=== PATIENT | female | born 1980 | race Caucasian/White ===

== ENCOUNTER 2023-07-06 07:07 | Day surgery (SDC) | payer OTHER, SELFPAY ==
[2023-07-06] VITALS (12 sets, daily range): BP systolic 104–120; BP diastolic 64–82; PULSE 46–68; RESP 12–18; TEMP 36.1–36.9; O2SAT 98–100; BMI 21.3
[2023-07-06] MEDS: LACTATED RINGERS 1000 ML 1,000 ML 100 ML IV (07:05)
--- OUTSIDE RECORDS SUMMARY | 2023-07-06 07:10 | XMS_ITS | Clinical Summary ---
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 This is their first child together Pt planning to deliver at [facility], may do some of her visits at [facility] Declines FS/SS/QS HSIL pap, needs colposcopy_04/12 , repeat colposcopy in late second trimester to monitor progression; she consulted with Rk Zamora in the [facility] and he recommended normal colposcopy during Rubella non-immune Periods somewhat irregular. VENTURA based on LMP was 10/09/13 VENTURA based on 7 wk ultrasound is 10/19/2013 and that is what we are going with due to irregular periods. Headaches started at 13 weeks and resolved around 30 weeks with caregiver services home. 1. 1997 35 weeks 3 hour labor, 2 pushes, 6 pounds Tylur 2. 2002 36 weeks 24 hour labor, 2 pushes, 7 pounds Yeny 3. 2003 37 weeks 12 hour labor, 2 pushes 6.5 pounds Casey Resolved Problems Problem Noted Date Diagnosed Date Resolved Date Possible , not yet confirmed 02/12/2013 03/23/2013 Encounters Date Type Department Care Team Description 07/03/[address] [address] Bonnie Tovar MD Surgery DATE DOS 07/0506/27/2023 Telephone [facility] [address] [place] [address] Bonnie Tovar MD Schedule Surgery 06/07/2023 4:15 PM CDT Office Visit [address] [address] Bonnie Tovar MD Consult (Umbilical hernia) 06/07/2023 Travel 06/02/2023 8:40 AM INSURANCE SALESMAN Office Visit [address] [address] Melissa Rutherford PA Concerns (Hernia in abdomen- 2014/Some pain and discomfort/Struggling to be able to eat, Causing digestive problems ) 06/02/2023 Travel from Last 3 Months Immunizations Name Administration Dates Next Due Hepatitis B (Adult) 11/01/2005,08/25/2005,2004 MMR 10/12/2013 Td, Preservative Free (age >= 7 Years) 7 Tuberculin (PPD) 02/04/2020 Family History Medical History Relation Name Comments Good Health Brother 3 1 brother and 1 1/2 brother, half brother with autism but high functioning Good Health Father Unknown Maternal Grandfather believe d to be in good health Diabetes Maternal Grandmother Good Health Mother Hypertension Other Cancer Paternal Grandfather lung ca ncer, bad lifestyle Other Paternal Grandmother issues from bad lifestyle Good Health Sister 3 1 sister, 1- 1/ 2 sister Relation Name Status Comments Brother 1 Alive Brother 2 Alive Brother 3 Daughter Alive Father Alive Maternal Grandfather Alive Maternal Grandmother Alive Mother Alive Other Paternal Grandfather Paternal Grandmother Alive Sister 1 Alive Sister 2 Alive Sister 3 Son 1 Alive Son 2 Alive Son 3 Alive Social History Tobacco Use Types Packs/Day Years Used Date Smoking Tobacco: Every Day Cigarettes 0.5 10.4 Started: 02/10/2013 Smokeless Tobacco: Never Tobacco Cessation:Ready to Q uit: Yes; Counseling Given: Yes Alcohol Use Standard Drinks/Week Comments Yes 2 (1 standard drink = 0.6 oz pure alcohol) Mostly on weekends - 2-3 beers on average PHQ-2 Answer Date Recorded PHQ-2 TOTAL SCORE 3 05/02/2022 Social Connections Answer Date Recorded Frequency of Communication with Friends and Fami ly Not on file 05/03/2023 Financial Resource Strain Answer Date R ecorded Difficulty of Paying Living Expenses 3 05/02/2022 Difficulty of Paying Living Expenses Not on file 05/02/2022 Food Insecurity Answer Date Recorded Worried About Running Out of Food in the Last Ye ar 1 05/02/2022 Transportation Needs Answer Date Record ed Lack of Transportation (Medical) 1 05/02/2022 Housing Stability Answer Date Recorded Unable to Pay for Housing in the Last Year 1 05/02/2022 Sex and Gender Information Value Date Recorded Sex Assigned at Not on file Gender Identity Not on file Sexual Orientation Not on file Obstetrics History Para Term AB IAB SAB Ectopic Multiple Livin g Live Births 5 4 3 1 1 0 0 1 0 4 4 Date Outcome GA Total Labor Labor/2nd/3rd Weight Sex Delivery Anes PTL Anat A1 A5 Name Cl in 09/05 35w 0d 3h 00m/ 2.72 kg (6 lb) M [facility] Delivery Location:[facility] Comments:PTL at 23 wks 1999 Ectopic Comments:treated with medication, no surgery 04/17 Term 37w 0d 24h 00m/ 3.18 kg (7 lb) F [facility] Delivery Location:[facility] Comments:no complicati ons 04/16 Term 38w 0d 12h 00m/ 2.95 kg (6 lb 8 oz) M [facility] Delivery Location:[facility] Comments:no complicati ons 10/11 Term 38w 0d 3.26 kg (7 lb 3 oz) M V[facility] Delivery Location:[facility] Last Filed Vital Signs Vital Sign Reading Time Taken Comments Blood Pressure 147/78 06/07/2023 4:14 PM CDT Pulse 78 06/07/2023 4:14 PM CDT Temperature 36.7 ??C (98 ??F) 05/02/2022 1:17 PM INSURANCE SALESMAN Respiratory Rate 18 04/28/2017 4:26 PM INSURANCE SALESMAN Oxygen Saturation 99% 06/07/2023 4:14 PM CDT Inhaled Oxygen Concentration - - Weight 60.2 kg (132 lb 12.8 oz) 06/07/2023 4:14 PM CDT Height 166.4 cm (5' 5.5) 10/06/2021 3:00 PM CDT Body Mass Index 21.76 10/06/2021 3:00 PM CDT Plan of Treatment Upcoming Encounters Date Type Department Care Team (Late st Contact Info) Description 07/06/2023 9:00 AM CDT Office Visit [facility] at [facility] [address] [place] [phone] Bonnie Tovar MD [address] [place] [address] Health Maintenance Due Date Last Done Comments Pneumococcal series for age 6-64 (1 of 2 - PCV) 07/28/1985 Tdap 07/28/1990 Tetanus booster 08/17/2016 08/17/2006 BMI (ht and wt on same day) for age 18+ 10/06/2022 10/06/2021, 03/09/2018, 03/03/2017, Additional history exists Pap test for age 21-65 10/06/2022 , 10/06/2021, 12/01/2017, Additional history exists COVID-19 vaccine series (2022-24 season) 2022 Depression screening for age 12+ 05/03/2023 05/03/2022, 05/03/2022, 05/02/2022, Additional history exists Influenza for age 9-49 11/26/2023 Hepatitis C screening for ag e 18-79 Completed 08/16/2006 HIV for age 15-65 Completed 03/22/2013, 08/16/2006 Procedures Procedure Name Priority Date/Time Associated Diagnosis Comments HPV THIN PREP Routine 10/06/2021 3:15 PM CDT Cervical cancer screening ANTI HIV 1/2 Routine 03/22/2013 2:16 PM INSURANCE SALESMAN Supervision of other normal ANTI HCV Routine 08/16/2006 3:17 PM CDT Laceration Of Finger from Last 3 Months or Most Recently Relevant to Health Maintenance Results * HPV HIGH RISK (10/06/2021 3:15 PM CDT) TYPE 16 Negative Negative 10/12/2021 11:21 AM CDT [facility] TYPE 18 Negative Negative 10/12/2021 11:21 AM CDT [facility] OTHER HIGH RISK TYPES Negative Negative 10/12/2021 11:21 AM CDT [facility] Other SPECIMEN FROM VAGINA / Unknown Non-Blood / Unknown 10/06/2021 3:15 PM CDT 10/07/2021 5:10 [facility] 10/12/2021 11:21 AM CDT HPV types 16, 18, 31, 33, 35, 39, 45, 51, 52, 56, 58, 59, 66 and 68 DNA were undetectable or below the pre-set threshold. Methodology: Karyna Sera 4800 HPV Test Cherelle Jeffers MD MICROBIOLOGY [facility] [address] [place] [address], * ANTI HIV 1/2 (03/22/2013 2:16 PM INSURANCE SALESMAN) ANTI HIV 1/2 Non-reacti ve [facility] Blood specimen (specimen) BLOOD SPECIMEN / Unknown 03/22/2013 2:16 PM INSURANCE SALESMAN 03/22/2013 2:09 PM INSURANCE SALESMAN Toyin Fragoso [employer] [facility] INTERNAL ZIP [id number] [place] [address] * ANTI HCV (08/16/2006 3:17 PM CDT) ANTI HCV Non-reacti ve [facility] Blood specimen (specimen) BLOOD SPECIMEN / Unknown 08/16/2006 3:17 PM CDT 08/16/2006 3:14 PM CDT Gilmar Higgins [facility] SEND OUT[facility] INTERNAL ZIP [phone] [address] from Last 3 Months or Most Recently Relevant to Health Maintenance Advance Directives * Full Code (Latest Code Status on File) Date Activated Date Inactivated Comments 06/27/2014 7:47 AM 06/27/2014 11:37 AM Care Teams Bumper And Painter Relationship Specialty Start Date End Date Sherwin Borden MD [address] [place] [address] PCP - General Family Practice 06/24/14
[2023-07-06] MEDS: SODIUM CHLORIDE 0.9 % (FLUSH) 10 ML SYRINGE IVF (07:42)
--- NOTE | 2023-07-06 08:23 | W.PM.H&PU ---
History & Physical Update History & Physical Update H&P Reviewed and patient assessed: No changes noted H&P Updates: Respiratory: Clear breath sounds bilaterally, maintained on room air CV: Regular rhythm and rate, well perfuse
[2023-07-06] MEDS: SCOPOLAMINE 1 MG/3 DAY PATCH 1 PATCH TRANSDERMA (08:24)
[2023-07-06] MEDS: CEFAZOLIN 2 GM INJ IVP (08:39)
[2023-07-06] MEDS: BUPIVACAINE 0.25% 30 ML INJECTION (09:15)
--- NOTE | 2023-07-06 09:29 | PM.GSPRC ---
Operative Note Date of procedure: 07/06/23 Pre-op diagnosis: Umbilical hernia Post-op diagnosis: Same Type of Procedure: Open umbilical hernia repair with placement of mesh. Indications: Patient is a 42-year-old female who presented to clinic with a symptomatic umbilical hernia. Risks and benefits of operative intervention were discussed at length with the patient. Risks included but was not limited to: Bleeding, infection, risk of damage to surrounding structures, possible need for additional procedures, risk of recurrence and postoperative complications such as pneumonia, pulmonary emboli or IL. All questions and concerns were addressed with the patient agreeing to proceed. Procedure Description: After discussing the risks and benefits of the procedure, the patient signed informed consent.? The operative site was marked and the patient was brought to the operating room and placed on the operating table in supine position.? Care was taken to pad the patient's pressure points.?? The patient was then intubated by anesthesia.?? The operative site was then prepped and draped in the usual sterile fashion.? A time-out was then performed. A curvilinear incision was made at the umbilicus. Dissection was carried down into the subcutaneous tissue using cautery. The hernia sac was encountered and care was taken to not enter it. Dissection was taken down to the fascia, and the umbilical stock was carefully dissected off of the hernia sac. Once the hernia sac was dissected out circumferentially, it was reduced. The fascial edges were then cleared circumferentially. The hernia was 2 cm in size and so the decision was made to use a piece of mesh. A preperitoneal pocket was created using a combination of blunt dissection and cautery. Hemostasis appeared adequate. Once the posterior fascia was clear, a piece of medium Ventralex ST hernia mesh was placed in the preperitoneal space with care to ensure that it laid flat. This was secured into place using 2 0 PDS interrupted sutures. The tails were then trimmed and the fascial opening was closed with a running 0 Vicryl. Local anesthetic was injected into the fascia, skin and subcutaneous tissues. The umbilicus was reapproximated to the fascia. The skin was then closed with running absorbable suture. A sterile dressing was then applied. Sterile dressings were then applied. ? The patient was then woken and transported to the recovery area in stable condition. ? The patient tolerated the procedure well. Findings: Umbilical hernia, repaired with mesh. Anesthesia: GETA Surgeon: Bonnie Tovar MD Estimated blood loss (mL): 5 Condition: stable Disposition: PACU
--- NOTE | 2023-07-06 09:43 | W.ANESCHARGE ---
Anesthesia Charges Start Date/Time Anesthesia Start Date: 07/06/23 Anesthesia Start Time: 08:30 Stop Date/Time Anesthesia Stop Date: 07/06/23 Anesthesia Stop Time: 09:41
[2023-07-06] MEDS: KETOROLAC 15 MG/ML inj IVP (10:15)
--- NOTE | 2023-07-06 10:33 | W.ANESCHARGE ---
Anesthesia Charges Start Date/Time Anesthesia Start Date: 07/06/23 Anesthesia Start Time: 08:30 Stop Date/Time Anesthesia Stop Date: 07/06/23 Anesthesia Stop Time: 09:41
== END 2023-07-06 11:09 | disposition home or self-care (01) ==
PROVIDERS: PCP Family Medicine; Visit Provider Surgery
PROC: (CPT 49591; principal; 2023-07-06 08:30)
DX: K42.9 Umbilical hernia without obstruction or gangrene (principal)
CPT/HCPCS: 49591; 00750; 00830; A9270; C1781; J0330; J0665; J0690; J1100; J1885; J2250; J2405; J2704; J3010; J3490; J7120

== ENCOUNTER 2023-07-12 14:16 | Emergency (ER) | payer OTHER, SELFPAY ==
[2023-07-12 14:41] VITALS: BP 118/71; PULSE 80; RESP 16; TEMP 36.9; O2SAT 100; BMI 21.1
--- NOTE | 2023-07-12 15:49 | CT_ITS ---
Patient: SHANTA JOHNS Facility:?[facility] Patient ID:?[id number] Site Patient ID:?[id number] Site :?1980 Study:?CT-Abdomen/Pelvis W/ 64CC ISOVUE 370-07/12/2023 4:17:52 PM Ordering Physician:ROBBY Final Report: Indication: Postop umbilical pain status post hernia repair July 06, 2023 Technique: Volumetric multidetector CT images of the abdomen and pelvis were obtained after the administration of intravenous contrast. 64 cc Isovue 370 low osmolar intravenous contrast Comparison: None available. Findings: There is minimal basilar atelectasis. The liver is normal in attenuation without intrahepatic biliary ductal dilatation. The portal vein is patent. The gallbladder is unremarkable without evidence of radiopaque calculus. There is no significant common biliary ductal dilatation or abrupt cut off. The spleen is normal in enhancement and size. The stomach and duodenum are grossly unremarkable. The pancreas is normal in enhancement without significant atrophy. The adrenal glands are unremarkable. The kidneys demonstrate preserved corticomedullary differentiation without evidence of obstructive uropathy. There is moderate stool seen throughout the colon with minimal nonspecific central small bowel distention. The appendix is unremarkable. There is no significant mesenteric, retroperitoneal, or pelvic sidewall lymph nodes. The aorta is nonaneurysmal. There is no significant atherosclerotic disease appreciated. The solid pelvic viscera are grossly unremarkable. There is no free fluid or free air. There is demonstration of a air and fluid collection seen just at the umbilicus within the superficial umbilical soft tissues measuring up to 2.1 centimeters and within the intra-abdominal space measuring up to 4.2 centimeters. The lumbar vertebral body heights are grossly maintained in satisfactory alignment without evidence of displaced fracture, lytic or blastic lesion. Impression: Demonstration of rim enhancing fluid within the subcutaneous umbilical soft tissues as well as the intraperitoneal space with superficial subcutaneous collection measuring 2.1 centimeters and intra-abdominal collection measuring 4.2 centimeters. Overall findings may represent developing abscess. Correlate with history of clinical symptoms. Please note that all CT scans at this facility use dose modulation, iterative reconstruction, and/or weight-based dosing when appropriate to reduce radiation dose to as low as reasonably achievable. Dictated by Donte Pedroza MD @ 07/12/2023 4:33:46 PM Signed by:?Donte Pedroza MD @07/12/2023 4:33:46 PM (Electronic Signature)
--- NOTE | 2023-07-12 15:50 | ED.GENADULT ---
HPI - General Adult General Chief complaint: Post Op Complication Stated complaint: post surgery bleeding Time Seen by Provider: 07/12/23 14:39 History of Present Illness HPI narrative: This patient is a 42 year old female who comes in with postoperative pain in her umbilicus. She had an umbilical hernia repaired 6 days ago and states that she is continued have a small amount of bloody drainage and has significant pain that is keeping her awake at night. She does not report any fever. She is taking food normally and has had normal bowel movements. She arrives here with normal vital signs. Related Data Previous Rx's Medication Instructions Recorded hydrocodone 5 mg-acetaminophen 325 1 tab PO Q6H PRN pain #10 tabs 07/06/23 mg tablet sennosides 8.6 mg capsule (senna) 8.6 mg PO DAILY PRN constipation 07/06/23 #90 caps amoxicillin 875 mg-potassium 1 tab PO BID #20 tabs 07/12/23 clavulanate 125 mg tablet ketorolac 10 mg tablet 10 mg PO TID 5 days #15 tabs 07/12/23 tramadol 50 mg tablet 50 mg PO Q6H PRN pain #15 tabs 07/12/23 Allergies Allergy/AdvReac Type Severity Reaction Status Date / Time No Known Drug Allergies Allergy Verified 07/12/23 16:09 Review of Systems Status of ROS: Reports: 10 or more systems reviewed and unremarkable except as noted in History and below Narrative: Constitutional: No fevers, no weight gain or loss. Eyes: No discharge. No vision changes. HENT: No congestion, no sore throat, no ear pain. Cardiovascular: No chest pain, no palpitations. Respiratory: No shortness of breath, no wheezes, no cough. Gastrointestinal: No vomiting, no diarrhea. Abdominal pain as described above. Genitourinary: No dysuria, no hematuria. Musculoskeletal: Normal range of motion. Skin: No rashes, no pruritis. Neurological: No dizziness, weakness, sensory change, speech change. Endo/Heme/Allergies: No bruising or bleeding. No polydipsia. Pysch: no suicidality, no anxiety, no insomnia. All other systems reviewed and are negative. 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 ?D06.9 - Carcinoma in situ of cervix, unspecified (ICD-10) Surgical History (Updated 07/04/23 @ 11:09 by Lissette Retana RN) Hx of wisdom tooth extraction ?K08.409 - Partial loss of teeth, unspecified cause, unspecified class (ICD-10) Hx of vaginal hysterectomy ?Z90.710 - Acquired absence of both cervix and uterus (ICD-10) Hx of right knee surgery ?Z98.890 - Other specified postprocedural states (ICD-10) History of loop electrical excision procedure (LEEP) ?Z98.890 - Other specified postprocedural states (ICD-10) History of hysteroscopy ?Z98.890 - Other specified postprocedural states (ICD-10) Social History Smoking Status: Current every day smoker What tobacco products do you use: cigarettes Do you use any of these nicotine containing products: Vaping Products How often do you have a drink containing alcohol: 2-3 times a week Alcohol type: wine How many standard drinks containing alcohol do you have on a typical day: 3 or 4 How often do you have six or more drinks on one occasion: Weekly AUDIT-C Alcohol total score: 7 Non-prescribed substance use: denies use Caffeine: Yes Are you using contraception or practicing any form of control: No Exam Narrative: Exam Narrative: Constitutional: Well-developed, well-nourished, no acute distress. HEENT: Normocephalic, atraumatic. Neck: Normal range of motion. Nontender. Supple. Heart: Regular. No murmurs. Normal rate. Intact distal pulses. Lungs: Clear to auscultation. No chest discomfort. No wheezes, rhonchi, or rales. Abdomen: Normal bowel sounds. No rebound tenderness. Exquisite tenderness when palpating lightly a around the umbilicus. There is some bruising on the superior aspect of the umbilicus. No sign of erythema or purulent drainage. No drainage of any sort currently. Genitalia: Deferred. Back: No midline tenderness. Normal range of motion. Extremities: Normal range of motion. No injury. Skin: Intact. No rash. Warm. No erythema or pallor. Neurologic: No altered sensation. No weakness. Alert and oriented. Psychiatric: No suicidality. No anxiety or depression. No insomnia. Nursing notes and vitals signs are reviewed. Const: Vital Signs, click to edit/add: Vital Signs - 24 hr 07/12/23 14:41 Temperature 98.4 F Pulse Rate [Pulse Oximeter] 80 Respiratory Rate 16 Blood Pressure [Ri ght Upper Arm] 118/71 Pulse Oximetry 100 Oxygen Delivery Me thod Room Air Course Vital Signs Vital signs: Initial Vital Signs Temperature 98.4 F 07/12/23 14:41 Temperature Source Temporal Artery Scan 07/12/23 14:41 Pulse Rate 80 07/12/23 14:41 Respiratory Rate 16 07/12/23 14:41 Blood Pressure 118/71 07/12/23 14:41 Blood Pressure Mean 86 07/12/23 14:41 Blood Pressure Position Sitting 07/12/23 14:41 Pulse Oximetry 100 07/12/23 14:41 Oxygen Delivery Method Room Air 07/12/23 14:41 Vital Signs Temperature 98.4 F 07/12/23 14:41 Pulse Rate 80 07/12/23 14:41 Respiratory Rate 16 07/12/23 14:41 Blood Pressure 118/71 07/12/23 14:41 Pulse Oximetry 100 07/12/23 14:41 Oxygen Delivery Method Room Air 07/12/23 14:41 Temperature 98.4 F 07/12/23 14:41 Pulse Rate 80 07/12/23 14:41 Respiratory Rate 16 07/12/23 14:41 Blood Pressure 118/71 07/12/23 14:41 Pulse Oximetry 100 07/12/23 14:41 Oxygen Delivery Method Room Air 07/12/23 14:41 Medications Administered Medications: Discontinued Medications Generic Name Dose Route Start Last Admin Trade Name Freq PRN Reason Stop Dose Admin Sodium Chloride 500 mls @ 500 mls/hr 07/12/23 15:49 07/12/23 17:33 0.9 % Sodium Chloride 500 Ml IV 07/12/23 16:48 Infused .Q1H ONE Infusion Ketorolac Tromethamine 15 mg 07/12/23 15:49 07/12/23 16:04 Ketorolac 30 Mg/Ml Inj IVP 07/12/23 15:50 15 mg ONCE ONE Administration Medical Decision Making MDM Narrative Medical decision making narrative: This patient comes in with abdominal pain 6 days post surgery to repair an umbilical hernia. She states that she is having trouble sleeping at night because of increased pain and also reports a distended abdomen. She arrives with normal vital signs. She has rather exquisite tenderness when palpating over this area even very lightly. I did use bedside ultrasound and saw a few small areas of fluid collection but did not look deep into her abdomen. Rather a CT scan of her abdomen and pelvis is obtained with IV contrast. This returns with evidence of a superficial fluid collection but also a larger collection below the mesh measuring 4.2 cm in diameter. There is some suspicion of a developing abscess however the patient has normal vital signs and her lab results are all normal. She does continue to have exquisite pain in this area and it is noted that when she is ambulating she walks very gingerly. I did speak with the surgeon on-call who happened to do the surgery last week. Dr. Tovar reviewed the images and recommended prescribing Augmentin an using pain medicines as needed. The patient will be seen by a her in clinic tomorrow afternoon. The patient received prescriptions for Augmentin, Toradol, and tramadol. Lab Data Labs: Lab Results 07/12/23 Range/Units 15:57 WBC 8.95 (4.50-11.00) K/uL RBC 4.45 (4.00-5.20) m/uL Hgb 14.6 (12.0-16.0) gm/dL Hct 43.1 (33.0-51.0) % MCV 97 (80-100) fL MCH 33 (26-34) pg MCHC 34 (32-36) gm/dL RDW Coeff of Briana 12.4 (11.5-15.5) % Plt Count 206 (140-440) K/uL Neut % (Auto) 66.0 (42.0-72.0) % Lymph % (Auto) 22.7 (20-44) % Brantley % (Auto) 7.3 (0.0-11.0) % Eos % (Auto) 3.2 (0.0-7.0) % Baso % (Auto) 0.7 (0.0-3.0) % Neut # (Auto) 5.91 (1.7-7.0) K/uL Lymph # (Auto) 2.03 (0.90-2.90) K/uL Brantley # (Auto) 0.70 (0.00-0.90) K/UL Eos # (Auto) 0.29 (0.00-0.50) K/uL Baso # (Auto) 0.06 (0.00-0.30) K/uL Abs Immat Gran (auto) 0.01 (0.00-0.30) K/uL Imm/Tot Granulo (auto) 0.1 % Sodium 135 (135-149) mmol/L Potassium 3.8 (3.6-5.1) mmol/L Chloride 104 (96-114) mmol/L Carbon Dioxide 25 (20-32) mmol/L Anion Gap 6 L (7-15) mEq/L BUN 15 (5-24) mg/dL Creatinine 0.6 (0.5-1.5) mg/dL Estimated Creat Clear 113.18 Estimated GFR 114 ml/min Glucose 88 (60-115) mg/dL Calcium 9.6 (8.4-10.6) mg/dL Imaging Data CT scan - abdomen: Radiologist's impression: Demonstration of rim enhancing fluid within the subcutaneous umbilical soft tissues as well as the intraperitoneal space with superficial subcutaneous collection measuring 2.1 centimeters and intra-abdominal collection measuring 4.2 centimeters. Overall findings may represent developing abscess. Correlate with history of clinical symptoms. Discharge Plan Discharge Clinical Impression: Post-op pain Patient Disposition: Home, Self-Care Condition: Unchanged Additional Instructions: Take medication as prescribed. Follow up with surgery Clinic tomorrow. Someone from the clinic will call for appointment time and location. Return if worsening symptoms occur. Prescriptions: New tramadol 50 mg tablet 50 mg PO Q6H PRN (Reason: pain) Qty: 15 0RF ketorolac 10 mg tablet 10 mg PO TID 5 Days Qty: 15 0RF amoxicillin-pot clavulanate 875-125 mg tablet 1 tab PO BID Qty: 20 0RF No Action hydrocodone-acetaminophen 5-325 mg tablet 1 tab PO Q6H PRN (Reason: pain) Qty: 10 0RF senna 8.6 mg capsule 8.6 mg PO DAILY PRN (Reason: constipation) Qty: 90 0RF Follow Up/Referrals: Labenski,Sherwin E, MD [Primary Care Provider] - Stand Alone Forms: Diaferoneal Info Instructions Procedures Ultrasound Other exam #1: Anatomical areas examined: Superficial exam of the umbilicus Indications: Postoperative pain and distension Description/findings: 2 small areas of fluid typical of a hematoma or seroma approximately less than 1 cm in diameter. Impression: Postoperative small amount of fluid collection without any sign of other abnormality.
[2023-07-12] MEDS: KETOROLAC 30 MG/ML inj 15 MG IVP (16:04)
[2023-07-12 16:14] LABS: Basophils Absolute Auto 0.06 K/uL (0.00-0.30); Basophils Percent Auto 0.7 % (0.0-3.0); Eosinophils Absolute Auto 0.29 K/uL (0.00-0.50); Eosinophils Percent Auto 3.2 % (0.0-7.0); Hematocrit 43.1 % (33.0-51.0); Hemoglobin* 14.6 gm/dL (12.0-16.0); Immature Granulocytes Abs Auto 0.01 K/uL (0.00-0.30); Immature Granulocytes Pct Auto 0.1 %; Lymphocytes Absolute Auto 2.03 K/uL (0.90-2.90); Lymphocytes Percent Auto 22.7 % (20-44); Mean Corpuscular HGB Conc 34 gm/dL (32-36); Mean Corpuscular Hemoglobin 33 pg (26-34); Mean Corpuscular Volume 97 fL (80-100); Monocytes Percent Auto 7.3 % (0.0-11.0); Neutrophils Absolute Auto 5.91 K/uL (1.7-7.0); Platelet Count* 206 K/uL (140-440); RDW Coefficient of Variation % 12.4 % (11.5-15.5); Red Blood Count 4.45 m/uL (4.00-5.20); White Blood Count* 8.95 K/uL (4.50-11.00)
[2023-07-12 16:17] LABS: Slide Review Reflex No
[2023-07-12] MEDS: 0.9 % SODIUM CHLORIDE 500 ML 500 ML IV (16:27)
[2023-07-12 16:31] LABS: Chloride* 104 mmol/L (96-114); Sodium* 135 mmol/L (135-149)
[2023-07-12 16:32] LABS: Potassium* 3.8 mmol/L (3.6-5.1)
[2023-07-12 16:34] LABS: Anion Gap 6 mEq/L (7-15); Carbon Dioxide* 25 mmol/L (20-32); Creatinine* 0.6 mg/dL (0.5-1.5); Est. Creatinine Clearance* 113.18; Estimated Glomerular Filt Rate 114 ml/min
[2023-07-12 16:35] LABS: Blood Urea Nitrogen* 15 mg/dL (5-24); Calcium* 9.6 mg/dL (8.4-10.6); Glucose* 88 mg/dL (60-115)
[2023-07-12 18:24] VITALS: BP 122/72; PULSE 58; RESP 16; O2SAT 100
== END 2023-07-12 18:25 | disposition home or self-care (01) ==
PROVIDERS: Emergency Provider Emergency Medicine Emergency Medical Services; PCP Family Medicine
DX: G89.18 Other acute postprocedural pain (principal); M79.89 Other specified soft tissue disorders
CPT/HCPCS: 36415; 74177; 76857; 80048; 85025; 96374; 99284; J1885; J7030; Q9967